=== PATIENT | male | born 1985 | race Caucasian/White ===

== ENCOUNTER 2020-05-27 09:51 | Emergency (ER) | payer OTHER ==
[~2020-05-27] VITALS: Ht 180.3 cm; Wt 81.8 kg
[2020-05-27] MEDS ORDERED: SODIUM CHLORIDE 0.9% 1,000 ML IV ONE (10:30)
[2020-05-27 10:46] LABS: BASOPHILS % 0.3 % (0.0-2.0); EOSINOPHILS % 2.1 % (0.0-5.0); HEMATOCRIT. 44.5 % (42.0-52.0); HEMOGLOBIN. 15.3 g/dL (14.0-18.0); MEAN CORPUSCULAR HEMOGLOBIN 27.9 pg (28.0-32.0); MEAN CORPUSCULAR VOLUME 81.1 fL (80.0-94.0); MEAN PLATELET VOLUME 9.4 fl (7.4-10.4); MONOCYTES % 4.8 % (2.0-8.0); NEUTROPHILS % 58.8 % (40.0-76.0); PLATELET 152 x1000/uL (130-400); RED BLOOD CELL COUNT 5.49 mill/uL (4.7-6.1); RED CELL DISTRIBUTION WIDTH 13.6 % (11.6-14.6)
[2020-05-27 10:51] LABS: CHLORIDE 106 mEq/L (98-107)
[2020-05-27 12:38] VITALS: BP 118/69
== END 2020-05-27 12:41 | disposition home or self-care (01) ==
LOC: ER 10:06
DX: R42 Dizziness and giddiness (principal)
CPT/HCPCS: 36415; 71045; 80053; 84484; 85025; 85379; 93005; 96360; 99285; J7030

== ENCOUNTER 2020-10-30 09:31 | Inpatient (IN) | payer OTHER, SELFPAY ==
[~2020-10-30] VITALS: Ht 188 cm; Wt 85.3 kg
[2020-10-30] MEDS ORDERED: KETOROLAC 30MG/ML VIAL IV STA (09:47)
[2020-10-30] MEDS ORDERED: ONDANSETRON HCL 4MG/2ML INJ IV STA (09:47)
[2020-10-30 10:32] LABS: BG BASE EXCESS -3.3 mmol/L (-2.0-2.0); BG CARBOXYHEMOGLOBIN 0.3 % (0.5-1.5); BG DEOXYHEMOGLOBIN 4.1 % (0.0-5.0); BG FRACTION INSPIRED OXYGEN 36; BG HCO3 ACT 20.3 mmol/L (22.0-26.0); BG METHEMOGLOBIN 0.3 % (0.0-1.5); BG OXYGEN SATURATION 95.9 % (92.0-98.5); BG OXYHEMOGLOBIN 95.3 % (94.0-97.0); BG PCO2 32.9 mmHg (35.0-45.0); BG PH 7.409 (7.350-7.450); BG PO2 82.7 mmHg (75.0-100.0); BG SAMPLE SITE RIGHT RADIAL; BG TOTAL HEMOGLOBIN 15.1 g/dL (12.0-18.0); BG VENT MODE NASAL CANNULA
[2020-10-30 10:33] LABS: BASOPHILS % 0.2 % (0.0-2.0); HEMATOCRIT. 42.1 % (42.0-52.0); HEMOGLOBIN. 14.5 g/dL (14.0-18.0); LYMPHOCYTES % 18.9 % (20.0-50.0); MEAN CORPUSCULAR HEMOGLOBIN 27.2 pg (28.0-32.0); MEAN CORPUSCULAR VOLUME 78.9 fL (80.0-94.0); MEAN PLATELET VOLUME 9.1 fl (7.4-10.4); MONOCYTES % 5.9 % (2.0-8.0); PLATELET 185 x1000/uL (130-400); RED BLOOD CELL COUNT 5.34 mill/uL (4.7-6.1); RED CELL DISTRIBUTION WIDTH 13.3 % (11.6-14.6)
[2020-10-30 10:43] LABS: CHLORIDE 100 mEq/L (98-107)
[2020-10-30 10:47] LABS: D-DIMER 0.31 mg/L FEU (<0.50); PROTHROMBIN TIME 11.1 sec (9.6-11.0)
[2020-10-30 10:52] LABS: CREATINE KINASE 77 IU/L (39-308)
[2020-10-30] MEDS ORDERED: CEFTRIAXONE 1 G PREMIX 50 ML IV ONE (11:30)
[2020-10-30] MEDS ORDERED: AZITHROMYCIN 500 MG in DEXT 5% WATER 250 ML IV ONE (11:30)
[2020-10-30] MEDS ORDERED: DIPHENHYDRAMINE 50MG/ML VIAL IV PRN (17:15)
[2020-10-30] MEDS ORDERED: MORPHINE SULFATE 2 MG/ML CPJ (NOT FOR IM USE) IV PRN (17:15)
[2020-10-30] MEDS ORDERED: HYDROCODONE/ACETAMINOPHEN 5/325MG TABLET PO PRN (17:15)
[2020-10-30] MEDS ORDERED: ONDANSETRON HCL 4MG/2ML INJ IV PRN (17:15)
[2020-10-30] MEDS ORDERED: DOCUSATE SODIUM 100MG CAPSULE PO PRN (17:15)
[2020-10-30] MEDS ORDERED: MAGNESIUM/ALUMINUM HYDROXIDE/SIMETHICONE 30ML UDC PO PRN (17:15)
[2020-10-30] MEDS ORDERED: LORAZEPAM 2MG/ML CPJ IV PRN (17:15)
[2020-10-30] MEDS ORDERED: CLONIDINE 0.1MG TABLET PO PRN (17:15)
[2020-10-30 17:42] VITALS: BP 125/74
[2020-10-30] MEDS ORDERED: ALBUTEROL 6.7GM HFA INHALER ORI PRN (18:00)
[2020-10-30] MEDS: ENOXAPARIN 40MG/0.4ML SYR SUBCUT SCH (18:09)
[2020-10-30 20:00] VITALS: BP 116/68
[2020-10-30] MEDS: SODIUM CHLORIDE 0.9% INJ 3ML FLUSH IVF SCH (21:09)
[2020-10-30] MEDS: ACETAMINOPHEN 325MG TABLET PO PRN (21:10)
[2020-10-30] MEDS: GUAIFENESIN 200MG/10ML SUGAR FREE UDC PO PRN (21:11)
[2020-10-31] VITALS: BP 114/70
[2020-10-31] MEDS: ACETAMINOPHEN 325MG TABLET PO PRN (01:10)
[2020-10-31 04:00] VITALS: BP 111/68
[2020-10-31] MEDS: SODIUM CHLORIDE 0.9% INJ 3ML FLUSH IVF SCH ×3 (05:15→20:51)
[2020-10-31] MEDS: GUAIFENESIN 200MG/10ML SUGAR FREE UDC PO PRN (05:15)
[2020-10-31 08:00] VITALS: BP 114/67
[2020-10-31] MEDS: DEXAMETHASONE 4MG/ML 1ML VIAL IV SCH (08:08)
[2020-10-31] MEDS: AZITHROMYCIN 500 MG in DEXT 5% WATER 250 ML IV SCH (08:08)
[2020-10-31 08:09] LABS: BASOPHILS % 0.2 % (0.0-2.0); EOSINOPHILS % 1.6 % (0.0-5.0); HEMATOCRIT. 42.4 % (42.0-52.0); HEMOGLOBIN. 14.3 g/dL (14.0-18.0); LYMPHOCYTES % 29.1 % (20.0-50.0); MEAN CORPUSCULAR HEMOGLOBIN 26.9 pg (28.0-32.0); MEAN CORPUSCULAR VOLUME 79.7 fL (80.0-94.0); MEAN PLATELET VOLUME 9.1 fl (7.4-10.4); MONOCYTES % 8.1 % (2.0-8.0); PLATELET 193 x1000/uL (130-400); RED BLOOD CELL COUNT 5.32 mill/uL (4.7-6.1); RED CELL DISTRIBUTION WIDTH 13.6 % (11.6-14.6)
[2020-10-31 08:12] LABS: CHLORIDE 106 mEq/L (98-107)
[2020-10-31] MEDS ORDERED: NALOXONE HCL 0.4MG/ML VIAL IV PRN (09:30)
[2020-10-31 10:05] LABS: CLARITY URINE CLEAR (CLEAR); COLOR URINE YELLOW (YELLOW); KETONES URINE 3+ (NEGATIVE); LEUKOCYTE ESTERASE URINE NEGATIVE (NEGATIVE); NITRITE URINE NEGATIVE (NEGATIVE); OCCULT BLOOD URINE NEGATIVE (NEGATIVE); PROTEIN URINE 2+ (NEGATIVE); SPECIFIC GRAVITY URINE 1.023 (1.005-1.030)
[2020-10-31] MEDS: PANTOPRAZOLE SODIUM 40 MG/VIAL IV SCH (10:07)
[2020-10-31] MEDS: CEFTRIAXONE 1,000 MG in DEXTROSE 5% WATER 50 ML IV SCH (10:07)
[2020-10-31 12:00] VITALS: BP 106/63
[2020-10-31 13:50] LABS: HEPATITIS B SURFACE ANTIGEN NEGATIVE
[2020-10-31 16:00] VITALS: BP 108/63
[2020-10-31] MEDS: ENOXAPARIN 40MG/0.4ML SYR SUBCUT SCH (16:36)
[2020-10-31 20:00] VITALS: BP 120/68
[2020-11-01] VITALS: BP 109/69
[2020-11-01 04:00] VITALS: BP 108/66
[2020-11-01] MEDS: SODIUM CHLORIDE 0.9% INJ 3ML FLUSH IVF SCH ×3 (05:30→21:09)
[2020-11-01 08:00] VITALS: BP 103/62
[2020-11-01] MEDS: PANTOPRAZOLE SODIUM 40 MG/VIAL IV SCH (08:08)
[2020-11-01] MEDS: AZITHROMYCIN 500 MG in DEXT 5% WATER 250 ML IV SCH (08:09)
[2020-11-01] MEDS: DEXAMETHASONE 4MG/ML 1ML VIAL IV SCH (08:09)
[2020-11-01] MEDS: CEFTRIAXONE 1,000 MG in DEXTROSE 5% WATER 50 ML IV SCH (10:19)
[2020-11-01 12:00] VITALS: BP 117/70
[2020-11-01 16:00] VITALS: BP 116/75
[2020-11-01] MEDS: ENOXAPARIN 40MG/0.4ML SYR SUBCUT SCH (17:01)
[2020-11-01 20:00] VITALS: BP 116/77
[2020-11-02] VITALS: BP 101/61
[2020-11-02 04:00] VITALS: BP 111/69
[2020-11-02] MEDS: SODIUM CHLORIDE 0.9% INJ 3ML FLUSH IVF SCH ×3 (06:08→21:26)
[2020-11-02 08:00] VITALS: BP 108/66
[2020-11-02] MEDS: AZITHROMYCIN 500 MG in DEXT 5% WATER 250 ML IV SCH (09:10)
[2020-11-02] MEDS: PANTOPRAZOLE SODIUM 40 MG/VIAL IV SCH (09:10)
[2020-11-02] MEDS: DEXAMETHASONE 4MG/ML 1ML VIAL IV SCH (09:11)
[2020-11-02] MEDS: GUAIFENESIN 200MG/10ML SUGAR FREE UDC PO PRN ×3 (09:13→16:43)
[2020-11-02] MEDS: CEFTRIAXONE 1,000 MG in DEXTROSE 5% WATER 50 ML IV SCH (10:27)
[2020-11-02 12:00] VITALS: BP 108/73
[2020-11-02 16:00] VITALS: BP 129/77
[2020-11-02] MEDS: ENOXAPARIN 40MG/0.4ML SYR SUBCUT SCH (16:43)
[2020-11-02] MEDS: BENZONATATE 100MG CAPSULE PO SCH (18:48)
[2020-11-02 20:00] VITALS: BP 113/80
[2020-11-02] MEDS: FAMOTIDINE 20MG/2ML VIAL IV SCH (21:26)
[2020-11-03] VITALS: BP 110/72
[2020-11-03] MEDS: BENZONATATE 100MG CAPSULE PO SCH ×3 (01:07→17:16)
[2020-11-03 04:00] VITALS: BP 110/74
[2020-11-03] MEDS: SODIUM CHLORIDE 0.9% INJ 3ML FLUSH IVF SCH ×3 (06:24→20:47)
[2020-11-03 06:38] LABS: HEMATOCRIT. 41.8 % (42.0-52.0); HEMOGLOBIN. 14.3 g/dL (14.0-18.0); MEAN CORPUSCULAR HEMOGLOBIN 27.5 pg (28.0-32.0); MEAN CORPUSCULAR VOLUME 80.3 fL (80.0-94.0); MEAN PLATELET VOLUME 9.4 fl (7.4-10.4); PLATELET 368 x1000/uL (130-400); RED CELL DISTRIBUTION WIDTH 13.8 % (11.6-14.6)
[2020-11-03 07:15] LABS: CHLORIDE 109 mEq/L (98-107)
[2020-11-03 08:00] VITALS: BP 118/76
[2020-11-03] MEDS: FAMOTIDINE 20MG/2ML VIAL IV SCH (08:34)
[2020-11-03] MEDS: DEXAMETHASONE 4MG/ML 1ML VIAL IV SCH (08:35)
[2020-11-03] MEDS: GUAIFENESIN-DM 200MG-20MG/10ML UDC PO PRN ×4 (08:35→20:47)
[2020-11-03] MEDS: CEFTRIAXONE 1,000 MG in DEXTROSE 5% WATER 50 ML IV SCH (08:36)
[2020-11-03] MEDS: ACETAMINOPHEN 325MG TABLET PO PRN (10:17)
[2020-11-03] MEDS ORDERED: AZITHROMYCIN 500 MG TABLET PO SCH (11:00)
[2020-11-03 11:55] VITALS: BP 105/56
[2020-11-03 16:00] VITALS: BP 108/66
[2020-11-03] MEDS: ENOXAPARIN 40MG/0.4ML SYR SUBCUT SCH (17:16)
[2020-11-03 20:35] VITALS: BP 113/66
[2020-11-03] MEDS: FAMOTIDINE 20MG TABLET PO SCH (20:47)
[2020-11-03 21:57] LABS: PLATELET ESTIMATE NORMAL
[2020-11-04 00:32] VITALS: BP 108/77
[2020-11-04] MEDS: BENZONATATE 100MG CAPSULE PO SCH ×2 (01:42→09:26)
[2020-11-04 04:00] VITALS: BP 111/76
[2020-11-04] MEDS: SODIUM CHLORIDE 0.9% INJ 3ML FLUSH IVF SCH ×2 (05:03→14:00)
[2020-11-04 08:00] VITALS: BP 115/78
[2020-11-04] MEDS: FAMOTIDINE 20MG TABLET PO SCH (09:26)
[2020-11-04] MEDS ORDERED: DEXAMETHASONE 10 MG/ML VIAL IV SCH (09:30)
[2020-11-04] MEDS: CEFTRIAXONE 1,000 MG in DEXTROSE 5% WATER 50 ML IV SCH (11:23)
[2020-11-04 12:00] VITALS: BP 102/63
[2020-11-04 13:34] LABS: BG BASE EXCESS -0.9 mmol/L (-2.0-2.0); BG CARBOXYHEMOGLOBIN 0.2 % (0.5-1.5); BG DEOXYHEMOGLOBIN 5.5 % (0.0-5.0); BG FRACTION INSPIRED OXYGEN 21; BG HCO3 ACT 22.9 mmol/L (22.0-26.0); BG METHEMOGLOBIN 0.1 % (0.0-1.5); BG OXYGEN SATURATION 94.5 % (92.0-98.5); BG OXYHEMOGLOBIN 94.2 % (94.0-97.0); BG PCO2 35.4 mmHg (35.0-45.0); BG PH 7.428 (7.350-7.450); BG PO2 72.9 mmHg (75.0-100.0); BG SAMPLE SITE RIGHT RADIAL; BG TOTAL HEMOGLOBIN 14.9 g/dL (12.0-18.0); BG VENT MODE ROOM AIR
[2020-11-04] MEDS ORDERED: ALBU90AE INH (14:07)
[2020-11-04] MEDS ORDERED: FAMO-135 PO (14:07)
[2020-11-04] MEDS ORDERED: DEXA4TAB PO (14:07)
[2020-11-04 16:00] VITALS: BP 115/73
[2020-11-05] MEDS ORDERED: DEXAMETHASONE 10 MG/ML VIAL IV SCH (09:00)
== END 2020-11-04 17:20 | disposition home or self-care (01) | DRG 871 ==
LOC: ER 09:31 → 7WST 12:38 → EDBEDREQ 12:41 → EDBEDREQSVC 12:41 → ENRESERV 15:08 → 7WST 17:09
PROVIDERS: ADMIT Internal Medicine; ATTEND Internal Medicine
DX: A41.89 Other specified sepsis (principal); J96.01 Acute respiratory failure with hypoxia; J12.82 Pneumonia due to coronavirus disease 2019; U07.1 COVID-19; E87.1 Hypo-osmolality and hyponatremia; R74.01 Elevation of levels of liver transaminase levels; K21.9 Gastro-esophageal reflux disease without esophagitis; E86.0 Dehydration; R19.7 Diarrhea, unspecified
CPT/HCPCS: 36415; 36600; 71045; 76700; 80048; 80053; 81003; 82375; 82550; 82728; 82805; 83605; 83615; 84145; 84484; 85025; 85379; 85384; 86140; 86705; 86709; 86803; 87340; 93005; 99291; C9113; C9803; J0456; J0696; J1100; J1650; J1885; J2405; J3490; J7040; J7060; U0003; U0005

== ENCOUNTER 2021-02-18 13:01 | Emergency (ER) | payer OTHER ==
[~2021-02-18] VITALS: Ht 177.8 cm; Wt 80.0 kg
[~2021-02-18 13:01] MED LIST: ALBU90AE INH; DEXA4TAB PO; FAMO-135 PO
[2021-02-18] MEDS ORDERED: KETOROLAC 60MG/2ML VIAL IM ONE (15:00)
[2021-02-18 18:20] VITALS: BP 149/83
== END 2021-02-18 18:50 | disposition home or self-care (01) ==
LOC: ER 13:10
DX: S00.462A Insect bite (nonvenomous) of left ear, initial encounter (principal); W57.XXXA Bitten or stung by nonvenomous insect and other nonvenomous arthropods, initial encounter; Y93.89 Activity, other specified; Y92.89 Other specified places as the place of occurrence of the external cause; Y99.8 Other external cause status
CPT/HCPCS: 96372; 99283; J1885